=== PATIENT | male | born 1950 | race Hispanic/Latino ===

== ENCOUNTER 2016-11-11 13:24 | Emergency (ER) | payer MEDICARE ==
[2016-11-11 13:37] VITALS: BP 122/80; PULSE 72; RESP 18; TEMP 97.8; O2SAT 98
[2016-11-11] MEDS ORDERED: Lidocaine 1% Inj (20ml) ONE (14:36)
[2016-11-11] MEDS ORDERED: Oxycodone/Acetaminophen 5/325 mg Tab PO STA (14:40)
--- NOTE | 2016-11-11 14:47 | ED PDOC ---
HPI: Skin/Bite Injury Time Seen by Provider: 11/11/16 14:09 Chief Complaint (Nursing): ENT Problem Chief Complaint (Provider): Tongue laceration History Per: Patient Additional Complaint(s): 66 yo male presents to ED with laceration to his tongue, sustained from accidentally biting himself at 10:30 am when eating breakfast. Pt reports that he is on a blood thinner and it has been oozing all day. No complaints of dizziness Past Medical History Reviewed: Nursing Documentation, Vital Signs Vital Signs: Last Vital Signs Temp 97.8 F 11/11/16 13:33 Pulse 72 11/11/16 13:33 Resp 18 11/11/16 13:33 BP 122/80 11/11/16 13:33 Pulse Ox 98 11/11/16 14:47 - Medical History PMH: Hyperlipidemia - Surgical History Surgical History: No Surg Hx - Family History Family History: States: No Known Family Hx - Living Arrangements Living Arrangements: With Family - Social History Current smoker - smoking cessation education provided: No Alcohol: Social Drugs: Denies - Allergies Allergies/Adverse Reactions: Allergies Allergy/AdvReac Type Severity Reaction Status Date / Time No Known Allergies Allergy Verified 11/11/16 13:32 Review of Systems ROS Statement: Except As Marked, All Systems Reviewed And Found Negative Skin: Positive for: Other (tongue laceration) Physical Exam - Reviewed Nursing Documentation Reviewed: Yes Vital Signs Reviewed: Yes - Physical Exam Appears: Positive for: Well, Non-toxic, No Acute Distress Head Exam: Positive for: ATRAUMATIC, NORMAL INSPECTION, NORMOCEPHALIC Skin: Positive for: Normal Color, Warm, DRY Eye Exam: Positive for: EOMI, Normal appearance, PERRL ENT: Positive for: Other ((+) 1 cm lacto right side of tongue, (+) minimally oozing blood at this time) Neck: Positive for: Normal, Painless ROM Cardiovascular/Chest: Positive for: Regular Rate, Rhythm Respiratory: Positive for: CNT, Normal Breath Sounds Gastrointestinal/Abdominal: Positive for: Normal Exam, Bowel Sounds, Soft Back: Positive for: Normal Inspection Extremity: Positive for: Normal ROM Neurologic/Psych: Positive for: Alert, Oriented - ECG O2 Sat by Pulse Oximetry: 98 Medical Decision Making Medical Decision Makin 5-0 vicryl sutures placed, Pt tolerated procedure well. all bleeding stopped Disposition - Clinical Impression Clinical Impression: Tongue laceration - Patient ED Disposition Is Patient to be Admitted: No - Disposition Disposition: Routine/Home Disposition Time: 14:50 Condition: STABLE Instructions: Care For Your Absorbable Stitches (ED) - POA Present On Arrival: None
== END 2016-11-11 14:50 | disposition home or self-care (01) ==
LOC: H.ER 13:24
DX: S01.512A Laceration without foreign body of oral cavity, initial encounter (principal); Y92.89 Other specified places as the place of occurrence of the external cause